=== PATIENT | male | born 1965 | race Two or more races ===

== ENCOUNTER 2017-02-08 20:49 | Emergency (ER) | payer OTHER ==
[~2017-02-08] VITALS: Ht 180.3 cm; Wt 95.3 kg
[2017-02-08] MEDS ORDERED: LIDOCAINE 1% HCL (LOCAL ANESTH.) INJ 20ML MDV ONE (21:46)
[2017-02-08] MEDS ORDERED: cefTRIAXone SOD 1,000 MG VL ONE (21:47)
[2017-02-08] MEDS ORDERED: cefTRIAXone W LIDOCAINE 1 GM IM IM ONE (22:00)
[2017-02-09] MEDS ORDERED: BACITRACIN-POLYMYXIN B TOPICAL OINT UD TOP ONE ×2 (01:40→02:00)
[2017-02-09 02:31] VITALS: BP 144/96
== END 2017-02-09 02:45 | disposition home or self-care (01) ==
LOC: ER 21:00
DX: S01.01XA Laceration without foreign body of scalp, initial encounter (principal); S09.91XA Unspecified injury of ear, initial encounter; F17.210 Nicotine dependence, cigarettes, uncomplicated; Z88.0 Allergy status to penicillin; Y08.89XA Assault by other specified means, initial encounter; Y93.89 Activity, other specified; Y99.8 Other external cause status; Y92.89 Other specified places as the place of occurrence of the external cause
CPT/HCPCS: 12002; 70450; 72125; 96372; 99284; J0696; J2001